=== PATIENT | female | born 1950 | race Caucasian/White ===

== ENCOUNTER 2023-10-12 16:42 | Inpatient (IN) | payer MEDICARE, SELFPAY ==
--- NOTE | ~2023-10-12 | CT_ITS ---
EXAMINATION: CT HEAD WITHOUT CONTRAST CLINICAL INFORMATION: Delirium. COMPARISON: None. TECHNIQUE: Contiguous axial imaging was performed from the skull base to vertex without intravenous administration of contrast. This CT examination was performed using dose optimization techniques as appropriate, variously including the following: *Automated exposure control *Adjustment of mA and/or kV according to patient size (this includes techniques or standardized protocols for targeted exams where dose is matched to indication/reason for exam; i.e. extremities or head) *Use of iterative reconstruction technique DLP: 657 mGy-cm. FINDINGS: There is no intracranial hemorrhage, large infarction, or mass lesion. There is no extra-axial collection. The lateral and third ventricles are mildly prominent, slightly out of disproportionate to the sulcal prominence. However, no findings additional suspicious for NPH are seen. There is a mild degree of diffuse brain parenchymal volume loss with mild prominence of ventricles and sulci. The visualized paranasal sinuses and mastoid air cells are clear. CT/CT head/brain wo IV con IMPRESSION: No acute intracranial abnormality.
[2023-10-12 17:14] VITALS: BP 169/84; PULSE 86; RESP 16; TEMP 36.8; O2SAT 100
[2023-10-12 17:26] VITALS: BMI 18.3
--- NOTE | 2023-10-12 18:21 | PC.ADMIT ---
Pt admitted on this unit on a CV at 1705 via stretcher, as a transfer from [facility]. She is a 73 year old female. Pt presented? to [facility] from private home with confusion, labile mood, and heightened anxiety. She was only partially oriented to person, time, place, and situation---she was unable to recall that she had called for help earlier today, and does not appear to recall that she had contacted other friends throughout the night to ask for help, prior to being transported to the ED by HCP, Lucy. When pt arrived on this unit she was anxious and upset about the admission process. They lied to me twice now, at the other hospital so I am worried that you will lie to me as well. Pt had a difficult time with answering the questions during admission process. She needed much redirection. Pt makes poor eye contact throughout, has slumped forward posture, appropriate volume and tone, and many scabs and small bruises on UE and LE. Pt states that she is unsure how her skin was broken. Pt had a two week stay at [facility] about two weeks ago, and has not been medication compliant since then. She was treated for a UTI during her medical stay. Overall, patient is pleasant, cooperative and gentle. She has concerns about being able to sleep well at night. She has moderately swollen tissue on her R elbow area. Pt reports potential constipation-states that she went either 2 or three days ago last, and feels as though she needs to move her bowels.
[2023-10-12 22:00] VITALS: BP 184/84; PULSE 89; RESP 18; TEMP 36.6; O2SAT 98
--- NOTE | 2023-10-13 09:10 | HO.PSYADMNOT ---
HPI Date of Service: 10/13/23 Chief Complaint: Panic disorder, anxiety Sources of Information: patient interviewed, chart reviewed and crisis/core team assessment reviewed HPI Subjective Notes: Conditional Voluntary Healthcare Proxy: Yes Narrative: The patient is a 73-year-old female, retired, living independently, referred from the emergency room of [facility]. According to the crisis assessment, the patient was brought to the emergency room by her friend any who is the healthcare proxy. Apparently the patient had been calling asking for help to several friends and family members. The patient was admitted into the hospital for medical reasons a few days ago with a diagnosis of UTI/pyelonephritis and apparently she stopped her medications while she was on the medical admission. She was assessed by the crisis team in the emergency room and she was grossly confused and disorganized, anxious unable to remember how come she in the up in the hospital. The patient carries a diagnosis of depression and anxiety and she has outpatient services. Since it was not her baseline she was transferring to this facility for psychiatric stabilization. On intake interview, the patient was very anxious, she looked confused, unable to provide details how come she in the in the hospital. I explained her that she had an infection a few weeks ago and she needed antibiotics and that is why she is confused at times. She was able to understand that but she was unable to provide further details. We will try to gather more collateral information. At this moment the patient adamantly denies suicidal or homicidal thoughts, psychotic symptoms or kristen. We will try to gather more collateral information. Disorder used that the patient has poor short-term memory, she looks disoriented and confused. Most likely she is on delirium still. Past Psychiatric History: According to the crisis team, the patient has outpatient services with a therapist and a medical provider. She carries a diagnosis of depression and anxiety Medical Evaluation Reviewed: Hospitalist Fior Pending COUNT INCLUDES THE [facility] Narrative: Osteoporosis High blood pressure Hypercholesteremia Recent UTI Family History: Unable to provide details Social History: Apparently the patient lives alone in the community, Substance History: Denies Trauma History: Denies Diagnostics Vital Signs (24Hr): Vital Signs - 24 hr 10/12/23 17:14 10/12/23 22:00 Temperature 98.2 F 98 F Pulse Rate 86 89 Respiratory Rate 16 18 Blood Pressure 169/84 H 184/84 H Pulse Oximetry 100 98 Oxygen Delivery Method Room Air Room Air BMI result Body Mass Index 18.3 Meds/Allergies Meds Home Medications Medication Instructions Recorded Confirmed Type acetaminophen-codeine 15 - 300 mg PO QID PRN Pain 10/12/23 10/12/23 History albuterol 2 puff PO QID PRN Wheezing 10/12/23 10/12/23 History amlodipine 5 mg PO DAILY 10/12/23 10/12/23 History atorvastatin 40 mg PO BEDTIME 10/12/23 10/12/23 History bupropion HCl 100 mg PO DAILY 10/12/23 10/12/23 History cefuroxime axetil 500 mg PO BID 10/12/23 10/12/23 History clonidine 0.1 mg PO TID PRN other 10/12/23 10/12/23 History cyclobenzaprine 5 mg PO TID PRN spasms 10/12/23 10/12/23 History duloxetine 20 mg PO DAILY 10/12/23 10/12/23 History ferrous sulfate 325 mg PO DAILY 10/12/23 10/12/23 History gabapentin 600 mg PO TID 10/12/23 10/12/23 History ibandronate 150 mg PO QMONTH 10/12/23 10/12/23 History lidocaine 1 patch topical NEEDED PRN pain 10/12/23 10/12/23 History lorazepam 1 mg PO TID PRN Anxiety 10/12/23 10/12/23 History metformin 750 mg PO DAILY@1700 10/12/23 10/12/23 History ondansetron HCl 4 mg PO BID PRN nausea/vomitting 10/12/23 10/12/23 History quetiapine 25 mg PO BEDTIME PRN Insomnia 10/12/23 10/12/23 History zolpidem 10 mg PO NEEDED PRN Insomnia 10/12/23 10/12/23 History Allergies Allergies Allergy/AdvReac Type Severity Reaction Status Date / Time alendronate sodium AdvReac Unknown Verified 10/12/23 18:37 [From Fosamax] Penicillins AdvReac Diarrhea Verified 10/12/23 18:37 sertraline [From Zoloft] AdvReac Diarrhea Verified 10/12/23 18:37 Mental Status Exam Mental Status Exam Patient Appearance: Appropriate Patient Orientation: Person Level of Consciousness: Disoriented and Restless Patient Behavior: Guarded, Passive and Restless Mood Description: Withdrawn Affect Description: Labile Patient Cognition Impaired: Yes Ability to Follow Directions: Good Speech Pattern: Clear Hallucinations: None Delusions: Ideas of Reference Thought Process: Distracted and Slowed Thinking Thought Content: positive for [place], positive for Poverty of Content, positive for Loose Associations and positive for Thought Blocking Judgement: Poor Assessment & Plan Assessment & Plan (1) Delirium: Status: Acute Code(s): R41.0 - Disorientation, unspecified (2) Major depressive disorder: Status: Acute Code(s): F32.9 - Major depressive disorder, single episode, unspecified Plan The patient is an elderly female with a past history of major depressive disorder and generalized anxiety disorder treated in the community and apparently at baseline she had been highly functional. Two weeks ago the patient had a UTI with pyelonephritis that needed inpatient level of care and apparently her psychiatric medications were discontinue. On admission the patient is still on delirium confused unable to remember how come she in the in the hospital unable to provide any details. Plan 1. Gather collateral information. We will do a medication reconciliation form and continue with his regular medications. 3. 15 minute checks. 4. Blood work. 5. Referral to medical team for medical clearance. Patient educated on: diagnosis and medical condition Reason for continued inpatient stay Substantial Risk for: inability to function, rapid decompensation and med/psych decompensation Statement Statement: I have reviewed the history and physical and performed a pertinent examination on my patient. No changes have occurred unless specified. If the History and Physical was not performed prior to admission, the Hospitalist's service will be consulted for completing the admission physical. Time Spent With Patient Time: Total time managing care of this patient today _45___ minutes.
[2023-10-13 09:58] VITALS: BP 141/68; PULSE 80; RESP 16; TEMP 37.1; O2SAT 97
[2023-10-13 13:00] VITALS: BMI 18.3
--- NOTE | 2023-10-13 16:55 | HO.PM.IMCN ---
History of Present Illness Data of Consult Service Date: 10/13/23 Primary Care Provider: JOSE ANGEL Hampton HPI Reason for consult: Admission H&P Pt is a 73-year-old female with a PMH significant for?HTN, HLD, peripheral neuropathy, [id number] diabetes type 2, depression and anxiety who is admitted to [facility] for disorganization. Medical consult for admission H&P. ?According to chart review, pt was recently discharged from [facility] on 10/10 after being admitted for possible UTI/pyelonephritis with pyuria, though urine cultures ultimately came back negative. Also had a recent fall a few weeks ago with right-sided rib fractures, as well as right-sided olecranon bursitis previous to that. Pt seen and evaluated at bedside. Pt complains of having an upset stomach, but is unable to further clarify if she is experiencing nausea, pain, or acid reflux. She just repeats she would like to go home and rest there. Pt otherwise has no acute medical complaints. Review of Systems Review of Systems: Pt complains of upset stomach Otherwise has no acute medical complaints PMFSH Social History Household Members: None Housing: House Do you presently have visiting nurse or other home services: No (PT WAS ABOUT TO HIRE HER FRIEND TO PROVIDE HOUSEKEEPING/MEAL PREP.) Patient Tobacco Use Status: Current everyday Tobacco user Tobacco use type: Cigarette Smoked in Last 30 Days: Yes e-Cigarette/Vaping Use: Currently Using Patient Interested in Nicotine Replacement: Yes Patient Given Instructions on How to Stop Smoking: Yes Date Education Initiated: 10/12/23 Second Hand Smoke Exposure: No Use of substances other than those prescribed or required for medical reasons: No Currently Displaying Signs/Symptoms of Drug Intoxication Withdrawal: No Any prior treatment program specific to substance use: No Have you been hit, kicked, punched, or otherwise hurt by someone within the past year? If so, by whom?: No Do you feel safe in your current relationship?: No Current Relationship Is there a partner from a previous relationship who is making you feel unsafe now?: No Are you made to feel afraid or neglected: No Advance Directives: No Advance Directives Information Provided: No Do you have thoughts of harming others: None Do you have a plan to hurt others: No Plan Recently lost weight without trying: No How much weight loss: Not applicable Eating poorly because of decreased appetite: No Nutrition screen score: 0 Nutrition Risks: No Nutritional Risk Patient : No : No Poor oral hygiene: No service: No Sexual orientation: Straight/Heterosexual Meds Allergies Allergy/AdvReac Type Severity Reaction Status Date / Time alendronate sodium AdvReac Unknown Verified 10/12/23 18:37 [From Fosamax] Penicillins AdvReac Diarrhea Verified 10/12/23 18:37 sertraline [From Zoloft] AdvReac Diarrhea Verified 10/12/23 18:37 Active Medications: Current Medications Acetaminophen (Acetaminophen 325 Mg Tablet) 650 mg PO Q6H PRN PRN Reason: Headache/Pain Mild Scale (1-3) Last Admin: 10/12/23 21:10 Dose: 650 mg Al Hydroxide/Mg Hydroxide (Magnesium Hydrox/Alum Hydrox 30 Ml Oral.Susp) 30 ml PO Q6H PRN PRN Reason: Heartburn/Nausea Amlodipine Besylate (Amlodipine Besylate 5 Mg Tablet) 5 mg PO DAILY [facility]; Protocol Last Admin: 10/13/23 10:37 Dose: 5 mg Cefuroxime Axetil (Cefuroxime Axetil 500 Mg Tablet) 500 mg PO BID GABRIEL Last Admin: 10/13/23 10:37 Dose: 500 mg Clonidine HCl (Clonidine Hcl 0.1 Mg Tablet) 0.1 mg PO TID PRN; Protocol PRN Reason: HTN Last Admin: 10/13/23 00:13 Dose: 0.1 mg Magnesium Hydroxide (Milk Of Magnesia 30 Ml Oral.Susp) 30 ml PO DAILY PRN PRN Reason: Constipation Last Admin: 10/13/23 14:09 Dose: 30 ml Nicotine (Nicotine 21 Mg Patch.Td24) 21 mg TRANSDERMA DAILY [facility] Olanzapine (Olanzapine 2.5 Mg Tablet) 2.5 mg PO DAILY PRN PRN Reason: agitation Last Admin: 10/12/23 20:57 Dose: 2.5 mg Trazodone HCl (Trazodone Hcl 25 Mg Halftab) 25 mg PO BEDTIME MRX1 PRN PRN Reason: Insomnia Last Admin: 10/12/23 22:26 Dose: 25 mg Home Medications Medication Instructions Recorded Confirmed Last Taken Type acetaminophen-codeine 15 - 300 mg PO QID PRN Pain 10/12/23 10/12/23 Unknown History albuterol 2 puff PO QID PRN Wheezing 10/12/23 10/12/23 Unknown History amlodipine 5 mg PO DAILY 10/12/23 10/12/23 Unknown History atorvastatin 40 mg PO BEDTIME 10/12/23 10/12/23 Unknown History bupropion HCl 100 mg PO DAILY 10/12/23 10/12/23 Unknown History cefuroxime axetil 500 mg PO BID 10/12/23 10/12/23 Unknown History clonidine 0.1 mg PO TID PRN other 10/12/23 10/12/23 Unknown History cyclobenzaprine 5 mg PO TID PRN spasms 10/12/23 10/12/23 Unknown History duloxetine 20 mg PO DAILY 10/12/23 10/12/23 Unknown History ferrous sulfate 325 mg PO DAILY 10/12/23 10/12/23 Unknown History gabapentin 600 mg PO TID 10/12/23 10/12/23 Unknown History ibandronate 150 mg PO QMONTH 10/12/23 10/12/23 Unknown History lidocaine 1 patch topical NEEDED PRN pain 10/12/23 10/12/23 Unknown History lorazepam 1 mg PO TID PRN Anxiety 10/12/23 10/12/23 Unknown History metformin 750 mg PO DAILY@1700 10/12/23 10/12/23 Unknown History ondansetron HCl 4 mg PO BID PRN nausea/vomitting 10/12/23 10/12/23 Unknown History quetiapine 25 mg PO BEDTIME PRN Insomnia 10/12/23 10/12/23 Unknown History zolpidem 10 mg PO NEEDED PRN Insomnia 10/12/23 10/12/23 Unknown History Physical Exam Vital Signs and Narrative: Vital Signs: Last Vital Signs Temp 98.8 F 10/13/23 09:58 Pulse 80 10/13/23 09:58 Resp 16 10/13/23 09:58 BP 141/68 H 10/13/23 09:58 Pulse Ox 97 10/13/23 09:58 O2 Del Method Room Air 10/13/23 09:58 BMI result Body Mass Index 18.3 General: AOx3, though not fully to situation. In no acute distress Resp: CTA bilaterally CVS: S1, S2, RRR GI: +BS, NT, no distention Skin: Warm, dry Neuro: Cranial nerves II-XII grossly intact bilaterally. Motor grossly intact bilaterally Extremities: No edema Assessment and Plan (1) Medical clearance for psychiatric admission: Status: Acute Plan Pt is a 73-year-old female with a PMH significant for?HTN, HLD, peripheral neuropathy, [id number] diabetes type 2, depression and anxiety who is admitted to [facility] for disorganization. Medical consult for admission H&P. Mood disorder Plan as per psychiatry Nausea/upset stomach Ondansetron and magnesium hydroxide/aluminum hydroxide p.r.n. Question of UTI Was admitted at [facility] for UTI/pyelo and discharged on 10/10; cultures came back negative Finish course of cefuroxime HTN Continue amlodipine, HLD Continue statin Peripheral neuropathy Continue gabapentin Non-insulin dependent type 2 diabetes mellitus Continue metformin Encourage diabetic diet Thank you for allowing us to participate in the care of this patient. Signing off at this time. Please re-consult if any acute complaints or issues arise.
[2023-10-13 20:16] VITALS: BP 181/85; PULSE 74; RESP 16; TEMP 36.4; O2SAT 96
[2023-10-14 06:00] VITALS: BP 157/69; PULSE 71; RESP 16; TEMP 36.6; O2SAT 98
--- NOTE | 2023-10-14 15:25 | HO.PSYCHPN ---
Subjective Subjective Date of Service: 10/14/23 Reason For Visit: Panic disorder, anxiety Interim History: Pt was seen and discussed in team rounds. Plans reviewed. Current UTI being treated. Reports nausea and anxiety. Zofran and Lorazapem ordered. R Elbow with edema, xray ordered. Medication Compliance: Yes Side effects from medications: No Attending Groups: Intermittent Review of Systems Medical Review of Systems: unchanged Review of Systems Musculoskeletal: Reports other (R Elbow edema) Mental Status Exam Mental Status Exam Patient Appearance: Appropriate Patient Orientation: Person Level of Consciousness: Disoriented and Restless Patient Behavior: Guarded, Passive and Restless Mood Description: Withdrawn Affect Description: Labile Patient Cognition Impaired: Yes Ability to Follow Directions: Good Speech Pattern: Clear Hallucinations: None Delusions: Ideas of Reference Thought Process: Distracted and Slowed Thinking Thought Content: positive for [place], positive for Poverty of Content, positive for Loose Associations and positive for Thought Blocking Judgement: Poor Diagnostics Vital Signs (24Hr): Vital Signs - 24 hr 10/13/23 20:16 10/14/23 06:00 Temperature 97.6 F 97.8 F Pulse Rate 74 71 Respiratory Rate 16 16 Blood Pressure 181/85 H 157/69 H Pulse Oximetry 96 98 Oxygen Delivery Method Room Air Room Air BMI result Body Mass Index 18.3 Medications Medications Current Medications Acetaminophen (Acetaminophen 325 Mg Tablet) 650 mg PO Q6H PRN PRN Reason: Headache/Pain Mild Scale (1-3) Last Admin: 10/12/23 21:10 Dose: 650 mg Al Hydroxide/Mg Hydroxide (Magnesium Hydrox/Alum Hydrox 30 Ml Oral.Susp) 30 ml PO Q6H PRN PRN Reason: Heartburn/Nausea Amlodipine Besylate (Amlodipine Besylate 5 Mg Tablet) 5 mg PO DAILY GABRIEL; Protocol Last Admin: 10/14/23 10:30 Dose: 5 mg Cefuroxime Axetil (Cefuroxime Axetil 500 Mg Tablet) 500 mg PO BID GABRIEL Last Admin: 10/14/23 10:30 Dose: 500 mg Clonidine HCl (Clonidine Hcl 0.1 Mg Tablet) 0.1 mg PO TID PRN; Protocol PRN Reason: HTN Last Admin: 10/13/23 20:32 Dose: 0.1 mg Magnesium Hydroxide (Milk Of Magnesia 30 Ml Oral.Susp) 30 ml PO DAILY PRN PRN Reason: Constipation Last Admin: 10/13/23 14:09 Dose: 30 ml Nicotine (Nicotine 21 Mg Patch.Td24) 21 mg TRANSDERMA DAILY GABRIEL Last Admin: 10/14/23 10:30 Dose: 21 mg Olanzapine (Olanzapine 2.5 Mg Tablet) 2.5 mg PO DAILY PRN PRN Reason: agitation Last Admin: 10/14/23 15:23 Dose: 2.5 mg Ondansetron HCl (Ondansetron Odt 4 Mg Tab.Rapdis) 8 mg TRANSLINGU Q6H PRN PRN Reason: Nausea Last Admin: 10/14/23 13:54 Dose: 8 mg Trazodone HCl (Trazodone Hcl 25 Mg Halftab) 25 mg PO BEDTIME MRX1 PRN PRN Reason: Insomnia Last Admin: 10/13/23 20:32 Dose: 25 mg Allergies Allergies Allergy/AdvReac Type Severity Reaction Status Date / Time alendronate sodium AdvReac Unknown Verified 10/12/23 18:37 [From Fosamax] Penicillins AdvReac Diarrhea Verified 10/12/23 18:37 sertraline [From Zoloft] AdvReac Diarrhea Verified 10/12/23 18:37 Assessment & Plan Assessment & Plan (1) Major depressive disorder: Status: Acute Code(s): F32.9 - Major depressive disorder, single episode, unspecified Assessment and Plan: 10/14/23 X Ray R Elbow-edematous Zofran prn nausea Lorazepam prn anxiety Plan Pt is a 73-year-old female with a PMH significant for?HTN, HLD, peripheral neuropathy, [id number] diabetes type 2, depression and anxiety who is admitted to [facility] for disorganization. Medical consult for admission H&P. Mood disorder Plan as per psychiatry Nausea/upset stomach Ondansetron and magnesium hydroxide/aluminum hydroxide p.r.n. Question of UTI Was admitted at [facility] for UTI/pyelo and discharged on 10/10; cultures came back negative Finish course of cefuroxime HTN Continue amlodipine, HLD Continue statin Peripheral neuropathy Continue gabapentin Non-insulin dependent type 2 diabetes mellitus Continue metformin Encourage diabetic diet Thank you for allowing us to participate in the care of this patient. Signing off at this time. Please re-consult if any acute complaints or issues arise. Patient educated on: medical condition Informed Consent: does not understand Reason for continued inpatient stay Substantial Risk for: med/psych decompensation Time Spent With Patient Time: Total time managing care of this patient today ____ minutes.
[2023-10-14] MEDS: LORazepam 0.5 MG TABLET PO (16:02)
[2023-10-14 20:20] VITALS: BP 185/76; PULSE 72; RESP 16; TEMP 36.7; O2SAT 96
[2023-10-15 10:37] VITALS: BP 170/92; PULSE 91; RESP 16; TEMP 36.7; O2SAT 95
[2023-10-15 12:55] VITALS: BP 128/58; PULSE 78
--- NOTE | 2023-10-15 17:03 | HO.PSYCHPN ---
Subjective Subjective Date of Service: 10/15/23 Reason For Visit: Panic disorder, anxiety Interim History: R elbow diagnostics shows bursitis. Pt visable in milieu and with peers. Team reports they are seeing an increase in anxious sx. Trial of lorazepam 0.5 mg tid prn requested Medication Compliance: Yes Side effects from medications: No Attending Groups: Yes Review of Systems Acute medical concerns: No Medical Review of Systems: unchanged Review of Systems Review of Systems bursitis Mental Status Exam Mental Status Exam Patient Appearance: Appropriate Patient Orientation: Person Level of Consciousness: Disoriented and Restless Patient Behavior: Guarded, Passive and Restless Mood Description: Withdrawn Affect Description: Labile Patient Cognition Impaired: Yes Ability to Follow Directions: Good Speech Pattern: Clear Hallucinations: None Delusions: Ideas of Reference Thought Process: Distracted and Slowed Thinking Thought Content: positive for [place], positive for Poverty of Content, positive for [place] and positive for Thought Blocking Judgement: Poor Diagnostics Vital Signs (24Hr): Vital Signs - 24 hr 10/14/23 20:20 10/15/23 10:37 10/15/23 12:55 Temperature 98.0 F 98.1 F Pulse Rate 72 91 78 Respiratory Rate 16 16 Blood Pressure 185/76 H 170/92 H 128/58 L Pulse Oximetry 96 95 Oxygen Delivery Method Room Air Room Air BMI result Body Mass Index 18.3 Imaging Radiology Impressions: ITS Impressions Elbow X-Ray 10/14/23 18:35 IMPRESSION: * No acute osseous injury at the right elbow. * Findings suggestive of olecranon bursitis. Medications Medications Current Medications Acetaminophen (Acetaminophen 325 Mg Tablet) 650 mg PO Q6H PRN PRN Reason: Headache/Pain Mild Scale (1-3) Last Admin: 10/15/23 02:08 Dose: 650 mg Al Hydroxide/Mg Hydroxide (Magnesium Hydrox/Alum Hydrox 30 Ml Oral.Susp) 30 ml PO Q6H PRN PRN Reason: Heartburn/Nausea Amlodipine Besylate (Amlodipine Besylate 5 Mg Tablet) 5 mg PO DAILY [facility]; Protocol Last Admin: 10/15/23 10:42 Dose: 5 mg Cefuroxime Axetil (Cefuroxime Axetil 500 Mg Tablet) 500 mg PO BID [facility] Last Admin: 10/15/23 10:42 Dose: 500 mg Clonidine HCl (Clonidine Hcl 0.1 Mg Tablet) 0.1 mg PO TID PRN; Protocol PRN Reason: HTN Last Admin: 10/15/23 10:42 Dose: 0.1 mg Lorazepam (Lorazepam 0.5 Mg Tablet) 0.5 mg PO Q8H PRN PRN Reason: anxiety,agitation Last Admin: 10/15/23 02:08 Dose: 0.5 mg Lorazepam (Lorazepam 0.5 Mg Tablet) 0.5 mg PO Q8H PRN PRN Reason: Anxiety Magnesium Hydroxide (Milk Of Magnesia 30 Ml Oral.Susp) 30 ml PO DAILY PRN PRN Reason: Constipation Last Admin: 10/13/23 14:09 Dose: 30 ml Nicotine (Nicotine 21 Mg Patch.Td24) 21 mg TRANSDERMA DAILY [facility] Last Admin: 10/15/23 10:42 Dose: 21 mg Olanzapine (Olanzapine 2.5 Mg Tablet) 2.5 mg PO DAILY PRN PRN Reason: agitation Last Admin: 10/14/23 15:23 Dose: 2.5 mg Ondansetron HCl (Ondansetron Odt 4 Mg Tab.Rapdis) 8 mg TRANSLINGU Q6H PRN PRN Reason: Nausea Last Admin: 10/14/23 13:54 Dose: 8 mg Trazodone HCl (Trazodone Hcl 25 Mg Halftab) 25 mg PO BEDTIME MRX1 PRN PRN Reason: Insomnia Last Admin: 10/15/23 01:25 Dose: 25 mg Allergies Allergies Allergy/AdvReac Type Severity Reaction Status Date / Time alendronate sodium AdvReac Unknown Verified 10/12/23 18:37 [From Fosamax] Penicillins AdvReac Diarrhea Verified 10/12/23 18:37 sertraline [From Zoloft] AdvReac Diarrhea Verified 10/12/23 18:37 Assessment & Plan Assessment & Plan (1) Major depressive disorder: Status: Acute Code(s): F32.9 - Major depressive disorder, single episode, unspecified Assessment and Plan: 10/14/23 X Ray R Elbow-edematous Zofran prn nausea Lorazepam prn anxiety 10/15/23 Lorazepam 0.5 mg tid prn anxious sx. Trial 10/15-10/18 Plan Pt is a 73-year-old female with a PMH significant for?HTN, HLD, peripheral neuropathy, [id number] diabetes type 2, depression and anxiety who is admitted to [facility] for disorganization. Medical consult for admission H&P. Mood disorder Plan as per psychiatry Nausea/upset stomach Ondansetron and magnesium hydroxide/aluminum hydroxide p.r.n. Question of UTI Was admitted at [facility] for UTI/pyelo and discharged on 10/10; cultures came back negative Finish course of cefuroxime HTN Continue amlodipine, HLD Continue statin Peripheral neuropathy Continue gabapentin Non-insulin dependent type 2 diabetes mellitus Continue metformin Encourage diabetic diet Thank you for allowing us to participate in the care of this patient. Signing off at this time. Please re-consult if any acute complaints or issues arise. Reason for continued inpatient stay Substantial Risk for: rapid decompensation Time Spent With Patient Time: Total time managing care of this patient today ____ minutes.
[2023-10-15 18:00] VITALS: BP 146/70; PULSE 77; RESP 16; TEMP 37.6; O2SAT 97
[2023-10-15 21:00] VITALS: TEMP 37.1
[2023-10-16 07:59] VITALS: BP 188/94; PULSE 93; RESP 18; TEMP 35.9; O2SAT 96
[2023-10-16 09:53] VITALS: BP 135/68
--- NOTE | 2023-10-16 09:59 | PC.NURSE ---
Morning BP at 0759 188/94 and she was asymptomatic. Gave morning BP med and PRN Clonidine and recheck of BP 135/[address] Tillman notified of initial BP and follow up BP.
--- NOTE | 2023-10-16 14:09 | HO.PSYCHPN ---
Subjective Subjective Date of Service: 10/16/23 Reason For Visit: Panic disorder, anxiety Subjective Notes: Conditional Voluntary Interim History: The nursing staff reported the patient had presented with flat affect, with good appetite perseverative over the week trying to call his family. On interview the patient had poor short-term memory and she agreed to do blood work and CT scan today. We will keep on the same treatment right now and reassess. Mental Status Exam Mental Status Exam Patient Appearance: Well Grooomed and Appropriate Patient Orientation: Person and Situation Level of Consciousness: Awake and Appropriate Patient Behavior: Guarded and Passive Mood Description: Calm Affect Description: Blunted Patient Cognition Impaired: Yes Ability to Follow Directions: Fair Speech Pattern: Clear Hallucinations: None Delusions: Ideas of Reference Thought Process: Distracted and Slowed Thinking Thought Content: positive for [place] and positive for Circumstantial Judgement: Poor Diagnostics Vital Signs (24Hr): Vital Signs - 24 hr 10/15/23 18:00 10/15/23 21:00 10/16/23 07:59 Temperature 99.7 F 98.7 F 96.6 F L Pulse Rate 77 93 Respiratory Rate 16 18 Blood Pressure 146/70 H 188/94 H Pulse Oximetry 97 96 Oxygen Delivery Method Room Air Room Air 10/16/23 09:53 Temperature Pulse Rate Respiratory Rate Blood Pressure 135/68 Pulse Oximetry Oxygen Delivery Method BMI result Body Mass Index 18.3 Imaging Radiology Impressions: ITS Impressions Elbow X-Ray 10/14/23 18:35 IMPRESSION: * No acute osseous injury at the right elbow. * Findings suggestive of olecranon bursitis. Medications Medications Current Medications Acetaminophen (Acetaminophen 325 Mg Tablet) 650 mg PO Q6H PRN PRN Reason: Headache/Pain Mild Scale (1-3) Last Admin: 10/16/23 08:23 Dose: 650 mg Al Hydroxide/Mg Hydroxide (Magnesium Hydrox/Alum Hydrox 30 Ml Oral.Susp) 30 ml PO Q6H PRN PRN Reason: Heartburn/Nausea Amlodipine Besylate (Amlodipine Besylate 5 Mg Tablet) 5 mg PO DAILY [facility]; Protocol Last Admin: 10/16/23 08:23 Dose: 5 mg Cefuroxime Axetil (Cefuroxime Axetil 500 Mg Tablet) 500 mg PO BID [facility] Last Admin: 10/16/23 08:23 Dose: 500 mg Clonidine HCl (Clonidine Hcl 0.1 Mg Tablet) 0.1 mg PO TID PRN; Protocol PRN Reason: HTN Last Admin: 10/16/23 08:23 Dose: 0.1 mg Lorazepam (Lorazepam 0.5 Mg Tablet) 0.5 mg PO Q8H PRN PRN Reason: anxiety,agitation Last Admin: 10/16/23 08:23 Dose: 0.5 mg Magnesium Hydroxide (Milk Of Magnesia 30 Ml Oral.Susp) 30 ml PO DAILY PRN PRN Reason: Constipation Last Admin: 10/13/23 14:09 Dose: 30 ml Nicotine (Nicotine 21 Mg Patch.Td24) 21 mg TRANSDERMA DAILY [facility] Last Admin: 10/16/23 08:24 Dose: 21 mg Olanzapine (Olanzapine 2.5 Mg Tablet) 2.5 mg PO DAILY PRN PRN Reason: agitation Last Admin: 10/16/23 00:48 Dose: 2.5 mg Ondansetron HCl (Ondansetron Odt 4 Mg Tab.Rapdis) 8 mg TRANSLINGU Q6H PRN PRN Reason: Nausea Last Admin: 10/16/23 08:28 Dose: 8 mg Trazodone HCl (Trazodone Hcl 25 Mg Halftab) 25 mg PO BEDTIME MRX1 PRN PRN Reason: Insomnia Last Admin: 10/16/23 00:48 Dose: 25 mg Allergies Allergies Allergy/AdvReac Type Severity Reaction Status Date / Time alendronate sodium AdvReac Unknown Verified 10/12/23 18:37 [From Fosamax] Penicillins AdvReac Diarrhea Verified 10/12/23 18:37 sertraline [From Zoloft] AdvReac Diarrhea Verified 10/12/23 18:37 Assessment & Plan Assessment & Plan (1) Major depressive disorder: Status: Acute Code(s): F32.9 - Major depressive disorder, single episode, unspecified Assessment and Plan: 10/14/23 X Ray R Elbow-edematous Zofran prn nausea Lorazepam prn anxiety 10/15/23 Lorazepam 0.5 mg tid prn anxious sx. Trial 10/15-10/18 Plan Pt is a 73-year-old female with a PMH significant for?HTN, HLD, peripheral neuropathy, hsy-icbkauu-amtoknoca diabetes type 2, depression and anxiety who is admitted to [facility] for disorganization. Medical consult for admission H&P. Mood disorder Plan as per psychiatry Nausea/upset stomach Ondansetron and magnesium hydroxide/aluminum hydroxide p.r.n. Question of UTI Was admitted at [facility] for UTI/pyelo and discharged on 10/10; cultures came back negative Finish course of cefuroxime HTN Continue amlodipine, HLD Continue statin Peripheral neuropathy Continue gabapentin Non-insulin dependent type 2 diabetes mellitus Continue metformin Encourage diabetic diet Thank you for allowing us to participate in the care of this patient. Signing off at this time. Please re-consult if any acute complaints or issues arise. Reason for continued inpatient stay Substantial Risk for: inability to function, rapid decompensation and med/psych decompensation Time Spent With Patient Time: Total time managing care of this patient today __20__ minutes.
--- NOTE | 2023-10-16 15:26 | MHC.CLN ---
NUTRITION DIET=REGULAR. ADEQUATE INTAKE NOTED. HAS PRN ZOFRAN FOR REPORTED NAUSEA. BMI=18.3. PATIENT IS UNDERWEIGHT. RD TO FOLLOW WEEKLY FOR INTAKE AND WEIGHT.
[2023-10-16 18:00] VITALS: BP 136/80; PULSE 84; RESP 18; TEMP 36.1; O2SAT 100
[2023-10-16] MEDS: traZODone HCL 25 MG HALFTAB PO ×2 (20:19→21:35)
[2023-10-16] MEDS: cefuroxime axetiL 500 MG TABLET PO (20:19)
[2023-10-16] MEDS: LORazepam 0.5 MG TABLET PO (21:11)
[2023-10-16] MEDS: Acetaminophen 325 MG TABLET 650 MG PO (21:35)
[2023-10-17] MEDS: Acetaminophen 325 MG TABLET 650 MG PO ×2 (06:06→21:23)
[2023-10-17 07:56] VITALS: BP 174/81; PULSE 83; RESP 18; TEMP 36.9; O2SAT 100
[2023-10-17 08:43] LABS: Ammonia 32 umol/L (13-55)
[2023-10-17] MEDS: LORazepam 0.5 MG TABLET PO ×2 (08:48→21:23)
[2023-10-17] MEDS: cloNIDine HCL 0.1 MG TABLET PO (08:48)
[2023-10-17] MEDS: amLODIPine Besylate 5 MG TABLET PO (08:48)
[2023-10-17] MEDS: cefuroxime axetiL 500 MG TABLET PO ×2 (08:49→21:22)
[2023-10-17] MEDS: Nicotine 21 MG PATCH.TD24 TRANSDERMA (08:49)
[2023-10-17] MEDS: Ondansetron ODT 4 MG TAB.RAPDIS 8 MG TRANSLINGU (08:49)
[2023-10-17] MEDS: OLANZapine 2.5 MG TABLET PO (08:49)
[2023-10-17 08:53] LABS: Alanine Aminotransferase 11 U/L (0-31); Albumin Level 3.9 g/dL (3.5-5.0); Alkaline Phosphatase 127 U/L (39-117); Anion Gap 13 (12-20); Aspartate Amino Transferase 11 U/L (5-31); Bilirubin Direct < 0.2 mg/dL (0.0-0.5); Bilirubin Total 0.2 mg/dL (0.0-1.0); Blood Urea Nitrogen 27 mg/dL (9-16); Calcium 9.5 mg/dL (8.4-10.2); Carbon Dioxide 24 mmol/L (22-29); Chloride 106 mmol/L (96-108); Creatinine Clr Calc Pharmacy 55.4; Estimated Glomerular Filt Rate > 60; Glucose Random 165 mg/dL (60-115); Potassium 4.2 mmol/L (3.3-5.1); Sodium 139 mmol/L (135-145); Total Protein 6.7 g/dL (6.5-8.0)
[2023-10-17 10:13] VITALS: BP 145/77
--- NOTE | 2023-10-17 10:19 | PC.NURSE ---
Morning bp 174/81 and Mariam asymptomatic. Morning meds and PRN Clonidine given and Dr. Tillman notified of BP. Recheck of BP at 1013 and 145/77; Dr. Tillman notified.
--- NOTE | 2023-10-17 12:07 | HO.PSYCHPN ---
Subjective Subjective Date of Service: 10/17/23 Reason For Visit: Panic disorder, anxiety Subjective Notes: Conditional Voluntary and 3 Day Interim History: The nursing staff reported the patient has verbalized he is willing to go back home. Yesterday we did a CT scan came back without no acute symptoms but there is chronic changes vascular. The occupational therapist did cognitive testing and she scored 10/30 on the Turner test and 4.2 on the Kwesi test. The aids social worker contact her therapist friends and adult protective Services and seems the patient had been deconditioned slowly. Today the patient signed a 3 day notice and she wants to be discharged as soon as possible. Mental Status Exam Mental Status Exam Patient Appearance: Well Grooomed Patient Orientation: Person and Situation Level of Consciousness: Awake Patient Behavior: Guarded and Passive Mood Description: Withdrawn Affect Description: Constricted Patient Cognition Impaired: Yes Ability to Follow Directions: Good Speech Pattern: Clear Hallucinations: None Delusions: Ideas of Reference Thought Process: Distracted and Slowed Thinking Thought Content: positive for [place] and positive for Poverty of Content Judgement: Fair Diagnostics Vital Signs (24Hr): Vital Signs - 24 hr 10/16/23 18:00 10/17/23 07:56 10/17/23 10:13 Temperature 96.9 F 98.4 F Pulse Rate 84 83 Respiratory Rate 18 18 Blood Pressure 136/80 174/81 H 145/77 H Pulse Oximetry 100 100 Oxygen Delivery Method Room Air Room Air BMI result Body Mass Index 18.3 Labs 10/17/23 08:04 Labs: Laboratory Results - last 48 hr 10/17/23 10/17/23 07:56 08:04 Sodium 139 Potassium 4.2 Chloride 106 Carbon Dioxide 24 Anion Gap 13 BUN 27 H Creatinine 0.80 Estim Creat Clear Calc 55.4 Estimated GFR > 60 Random Glucose 165 H Calcium 9.5 Total Bilirubin 0.2 Direct Bilirubin < 0.2 AST 11 ALT 11 Alkaline Phosphatase 127 H Ammonia 32 Total Protein 6.7 Albumin 3.9 Imaging Radiology Impressions: ITS Impressions Elbow X-Ray 10/14/23 18:35 IMPRESSION: * No acute osseous injury at the right elbow. * Findings suggestive of olecranon bursitis. Head CT 10/16/23 13:40 IMPRESSION: No acute intracranial abnormality. Medications Medications Current Medications Acetaminophen (Acetaminophen 325 Mg Tablet) 650 mg PO Q6H PRN PRN Reason: Headache/Pain Mild Scale (1-3) Last Admin: 10/17/23 06:06 Dose: 650 mg Al Hydroxide/Mg Hydroxide (Magnesium Hydrox/Alum Hydrox 30 Ml Oral.Susp) 30 ml PO Q6H PRN PRN Reason: Heartburn/Nausea Amlodipine Besylate (Amlodipine Besylate 5 Mg Tablet) 5 mg PO DAILY [facility]; Protocol Last Admin: 10/17/23 08:48 Dose: 5 mg Cefuroxime Axetil (Cefuroxime Axetil 500 Mg Tablet) 500 mg PO BID [facility] Last Admin: 10/17/23 08:49 Dose: 500 mg Clonidine HCl (Clonidine Hcl 0.1 Mg Tablet) 0.1 mg PO TID PRN; Protocol PRN Reason: HTN Last Admin: 10/17/23 08:48 Dose: 0.1 mg Lorazepam (Lorazepam 0.5 Mg Tablet) 0.5 mg PO Q8H PRN PRN Reason: anxiety,agitation Last Admin: 10/17/23 08:48 Dose: 0.5 mg Magnesium Hydroxide (Milk Of Magnesia 30 Ml Oral.Susp) 30 ml PO DAILY PRN PRN Reason: Constipation Last Admin: 10/13/23 14:09 Dose: 30 ml Nicotine (Nicotine 21 Mg Patch.Td24) 21 mg TRANSDERMA DAILY [facility] Last Admin: 10/17/23 08:49 Dose: 21 mg Olanzapine (Olanzapine 2.5 Mg Tablet) 2.5 mg PO DAILY PRN PRN Reason: agitation Last Admin: 10/17/23 08:49 Dose: 2.5 mg Ondansetron HCl (Ondansetron Odt 4 Mg Tab.Rapdis) 8 mg TRANSLINGU Q6H PRN PRN Reason: Nausea Last Admin: 10/17/23 08:49 Dose: 8 mg Trazodone HCl (Trazodone Hcl 25 Mg Halftab) 25 mg PO BEDTIME MRX1 PRN PRN Reason: Insomnia Last Admin: 10/16/23 21:35 Dose: 25 mg Allergies Allergies Allergy/AdvReac Type Severity Reaction Status Date / Time alendronate sodium AdvReac Unknown Verified 10/12/23 18:37 [From Fosamax] Penicillins AdvReac Diarrhea Verified 10/12/23 18:37 sertraline [From Zoloft] AdvReac Diarrhea Verified 10/12/23 18:37 Assessment & Plan Assessment & Plan (1) Major depressive disorder: Status: Acute Code(s): F32.9 - Major depressive disorder, single episode, unspecified Assessment and Plan: 10/14/23 X Ray R Elbow-edematous Zofran prn nausea Lorazepam prn anxiety 10/15/23 Lorazepam 0.5 mg tid prn anxious sx. Trial 10/15-10/18 Plan Pt is a 73-year-old female with a PMH significant for?HTN, HLD, peripheral neuropathy, zzb-[id number]-[id number] diabetes type 2, depression and anxiety who is admitted to [facility] for disorganization. Medical consult for admission H&P. Mood disorder Plan as per psychiatry Nausea/upset stomach Ondansetron and magnesium hydroxide/aluminum hydroxide p.r.n. Question of UTI Was admitted at [facility] for UTI/pyelo and discharged on 10/10; cultures came back negative Finish course of cefuroxime HTN Continue amlodipine, HLD Continue statin Peripheral neuropathy Continue gabapentin Non-insulin dependent type 2 diabetes mellitus Continue metformin Encourage diabetic diet Plan 1. Continue with same treatment. 2. The patient signed a 3 day notice will assess the possibility of Section 7 and 8. 3. The occupational therapist reported the patient scored very low on the Turner test 08/07 and 4.2 on the Kwesi test states seems that she is demented. Reason for continued inpatient stay Substantial Risk for: inability to function, rapid decompensation and med/psych decompensation Time Spent With Patient Time: Total time managing care of this patient today __20__ minutes.
[2023-10-17 18:53] VITALS: BP 149/67; PULSE 89; RESP 18; TEMP 36.5; O2SAT 96
[2023-10-17] MEDS: traZODone HCL 25 MG HALFTAB PO ×2 (21:23→22:34)
[2023-10-18 06:00] VITALS: BP 164/76; PULSE 85; RESP 16; TEMP 36.9; O2SAT 98
--- NOTE | 2023-10-18 09:07 | PM.PSYDC ---
DS: Providers Provider Date of Service: 10/18/23 Date of admission: 10/12/23 16:42 Date of discharge: 10/18/23 Primary care physician: JOSE ANGEL Hampton Consults: 10/12/23 19:14 Consult to Hospitalist Routine Comment: Consulting Provider: Hospitalist Reason For Exam: admission physical DS: Diagnosis Discharge Diagnosis (1) Major depressive disorder: Status: Acute DS: Medications Discharge Medications Home Medications: Home Medications Medication Instructions Recorded Confirmed acetaminophen-codeine 15 - 300 mg PO QID PRN Pain 10/12/23 10/12/23 albuterol 2 puff PO QID PRN Wheezing 10/12/23 10/12/23 amlodipine 5 mg PO DAILY 10/12/23 10/12/23 atorvastatin 40 mg PO BEDTIME 10/12/23 10/12/23 bupropion HCl 100 mg PO DAILY 10/12/23 10/12/23 cefuroxime axetil 500 mg PO BID 10/12/23 10/12/23 clonidine 0.1 mg PO TID PRN other 10/12/23 10/12/23 cyclobenzaprine 5 mg PO TID PRN spasms 10/12/23 10/12/23 duloxetine 20 mg PO DAILY 10/12/23 10/12/23 ferrous sulfate 325 mg PO DAILY 10/12/23 10/12/23 gabapentin 600 mg PO TID 10/12/23 10/12/23 ibandronate 150 mg PO QMONTH 10/12/23 10/12/23 lidocaine 1 patch topical NEEDED PRN pain 10/12/23 10/12/23 lorazepam 1 mg PO TID PRN Anxiety 10/12/23 10/12/23 metformin 750 mg PO DAILY@1700 10/12/23 10/12/23 ondansetron HCl 4 mg PO BID PRN nausea/vomitting 10/12/23 10/12/23 quetiapine 25 mg PO BEDTIME PRN Insomnia 10/12/23 10/12/23 zolpidem 10 mg PO NEEDED PRN Insomnia 10/12/23 10/12/23 Mental Status Exam Mental Status Exam Patient Appearance: Appropriate Patient Orientation: Person and Situation Level of Consciousness: Awake and Appropriate Patient Behavior: Guarded and Passive Mood Description: Withdrawn Affect Description: Constricted Patient Cognition Impaired: Yes Ability to Follow Directions: Good Speech Pattern: Clear Hallucinations: None Delusions: Not Present Thought Process: Distracted and Slowed Thinking Thought Content: positive for [place] and positive for Poverty of Content Judgement: Fair Data Data Completed and Pending Completed studies during hospitalization [Text1]: 10/17/23 10/17/23 07:56 08:04 Sodium 139 Potassium 4.2 Chloride 106 Carbon Dioxide 24 Anion Gap 13 BUN 27 H Creatinine 0.80 Estim Creat Clear Calc 55.4 Estimated GFR > 60 Random Glucose 165 H Calcium 9.5 Total Bilirubin 0.2 Direct Bilirubin < 0.2 AST 11 ALT 11 Alkaline Phosphatase 127 H Ammonia 32 Total Protein 6.7 Albumin 3.9 Imaging Diagnostic Imaging Impressions Elbow X-Ray 10/14/23 18:35 IMPRESSION: * No acute osseous injury at the right elbow. * Findings suggestive of olecranon bursitis. Head CT 10/16/23 13:40 IMPRESSION: No acute intracranial abnormality. DS: Summary Hospital Course Hospital Course: The patient is a 73-year-old female with a past history of major depressive disorder with outpatient providers referred to the emergency room for altered mental status in the context of UTI. The patient had a pyelonephritis episode a few weeks before and her antidepressants were stopped in the hospital. Later on, her relatives found her that she was extremely confused and she was brought to the emergency room. She was assessed by crisis and transferring to the facility for psychiatric stabilization. On intake, the patient was severely confused she did not remember how come she in the in the hospital, she stated that she wanted to go back home. I explained her that it was expected that she could be delirious after a UTI. She was started on antibiotics with no side effects. She eventually cleared up she was awake and alert but it was evident that the patient have a cognitive impairment. The patient was not aware of the diagnosis of dementia but apparently she carried that diagnosis before since we saw that she was already started on Namenda. The patient signed a 3 day notice and wanted to be discharged. At this moment, we could not find imminent danger so we can not filed for Section 7 and 8 and discharge planning was discussed. The pediatric social worker made all the arrangements and safe discharge planning. Her caregivers and family were aware of the discharge planning. Time spent discussing smoking cessation with patient: 3 to 10 minutes Status at Discharge Cognitive/behavioral status at discharge: Impaired at baseline Functional status at discharge: independent ambulation Overall status at discharge: patient is back to baseline Time Spent with Patient Time attestation: Total time managing care of this patient today __30__ minutes. Time spent: Less than 30 minutes Discharge Plan Discharge Anticipated Discharge Date/Time: 10/18/23 12:18 Patient Disposition: Home, Self-Care Discharge Diagnosis: Major depressive disorder. Dementia Delirium resolved. UTI resolved Referrals: Dr Genesis Eric [facility] [Other] - 11/01/23 9:00 am (Your next appointment with your psychiatrist Dr Eric is for 11/01/23 at 9am in office. ) Fam June [facility] [Other] - 10/20/23 3:00 pm (Your next appointment with your therapist is for Monday10/20/23 at 3pm. ) [facility] [Other] - 3-5 Days (Your telephonic nurse case manager Sushila will follow up and you are approved for the enhanced care package at [facility].) Jo Ann Cheng NP [facility] [Other] - 11/13/23 9:00 am (Your next appointment with Jo Ann is scheduled for 11/13/23 at 0900. ) Discharge Medications: New clonidine HCl 0.1 mg Tablet 0.1 mg PO TID PRN (Reason: HTN) 30 Days Qty: 60 0RF Protocol: Hold for SBP< HOLD for SBP < : 90 amlodipine 5 mg Tablet 5 mg PO DAILY 30 Days Qty: 30 0RF Protocol: Hold for SBP< HOLD for SBP < : 90 olanzapine 2.5 mg Tablet 2.5 mg PO DAILY PRN (Reason: agitation) 30 Days Qty: 30 0RF cefuroxime axetil 500 mg Tablet 500 mg PO BID 4 Days Qty: 8 0RF memantine 5 mg Tablet 5 mg PO DAILY 30 Days Qty: 30 0RF Continued albuterol inhaler 2 puff PO QID PRN (Reason: Wheezing) 30 Days Qty: 1 0RF Rx Instructions: Albuterol sulphate HFA 108 AERS ibandronate 150 mg PO QMONTH 30 Days Qty: 1 0RF Discontinued amlodipine 5 mg PO DAILY atorvastatin 40 mg PO BEDTIME bupropion HCl 100 mg PO DAILY Rx Instructions: bupropion 100mg/12hrs (SR) tablet, ER cefuroxime axetil 500 mg PO BID Rx Instructions: for 5 days clonidine 0.1 mg PO TID PRN (Reason: other) cyclobenzaprine 5 mg PO TID PRN (Reason: spasms) duloxetine 20 mg PO DAILY ferrous sulfate 325 mg PO DAILY gabapentin 600 mg PO TID lidocaine 1 patch topical NEEDED PRN (Reason: pain) lorazepam 1 mg PO TID PRN (Reason: Anxiety) metformin 750 mg PO DAILY@1700 ondansetron HCl 4 mg PO BID PRN (Reason: nausea/vomitting) quetiapine 25 mg PO BEDTIME PRN (Reason: Insomnia) Rx Instructions: per pt, she takes seroquel 5mg (1.3 tabs) po prn zolpidem 10 mg PO NEEDED PRN (Reason: Insomnia) acetaminophen-codeine 15 - 300 mg PO QID PRN (Reason: Pain) Discharge Orders: Discharge Order (Routine); Ordered 10/18/23 Ordered By: Orlin Tillman Diet: Advance to usual diet Activity on Discharge: As tolerated Stand Alone Forms: Patient Portal Discharge page Care Plan Goals: Care plan goals achieved in this admission Health Concerns: Continue with treatment with primary care physician Plan of Treatment: Continue with regular prescriber hers and other caregivers. Assessment: The patient is an elderly female with a past history of major depressive disorder who was brought into the facility for delirium that resolved after continue treatment with antibiotics. We did not started antidepressants since the patient was still cognitively impaired. Later on we found out that she carries a diagnosis of dementia and restarted on Namenda. At this moment safe to be discharged to the community
[2023-10-18] MEDS: Nicotine 21 MG PATCH.TD24 TRANSDERMA (09:11)
[2023-10-18] MEDS: amLODIPine Besylate 5 MG TABLET PO (09:12)
[2023-10-18] MEDS: cefuroxime axetiL 500 MG TABLET PO (09:12)
== END 2023-10-18 14:30 | disposition home or self-care (01) | DRG 881 ==
PROVIDERS: Admitting Provider Psychiatry & Neurology Psychiatry; PCP Nurse Practitioner Family; Visit Provider Psychiatry & Neurology Psychiatry
DX: F32.9 Major depressive disorder, single episode, unspecified (principal); N39.0 Urinary tract infection, site not specified; F17.210 Nicotine dependence, cigarettes, uncomplicated; F03.90 Unspecified dementia, unspecified severity, without behavioral disturbance, psychotic disturbance, mood disturbance, and anxiety; E11.42 Type 2 diabetes mellitus with diabetic polyneuropathy; R41.0 Disorientation, unspecified; E78.5 Hyperlipidemia, unspecified; I10 Essential (primary) hypertension; R11.0 Nausea; Z71.6 Tobacco abuse counseling; Z79.899 Other long term (current) drug therapy
CPT/HCPCS: 36415; 70450; 73070; 80048; 80076; 82140

== ENCOUNTER → 2023-10-12 16:42 | Outpatient (BNV) | payer MEDICARE, SELFPAY | PROVIDERS: Admitting Provider Psychiatry & Neurology Psychiatry; PCP Nurse Practitioner Family; Visit Provider Psychiatry & Neurology Psychiatry | DX: F33.2 Major depressive disorder, recurrent severe without psychotic features (principal) | CPT/HCPCS: 90792; 99231; 99232; 99238 ==

== ENCOUNTER → 2023-10-12 16:42 | Outpatient (BNV) | payer MEDICARE, SELFPAY | PROVIDERS: Admitting Provider Psychiatry & Neurology Psychiatry; PCP Nurse Practitioner Family; Visit Provider Student in an Organized Health Care Education/Training Program | DX: Z02.2 Encounter for examination for admission to residential institution (principal) | CPT/HCPCS: 99429 ==

== ENCOUNTER 2024-11-23 14:31 | Emergency (ER) | payer MEDICARE, SELFPAY ==
--- NOTE | ~2024-11-23 | CT_ITS ---
CLINICAL HISTORY: unwitnessed fall CT Brain without contrast Comparison: CT/SR - CT HEAD/BRAIN WO IV CON - 10/16/23 13:27 EST FINDINGS: Cortical sulci: There is diffuse prominence of the cortical sulci compatible with age-related atrophy. Ventricles: Normal for age Brain parenchyma: There is patchy lucency throughout the deep white matter indicating chronic microvascular leukomalacia. Extra axial spaces: Normal Posterior Fossa: Normal Extracranial soft tissues: Normal Additional abnormality: None IMPRESSION: Age-related atrophy with chronic microvascular leukomalacia. No hemorrhage, mass effect, or acute findings identified. This document has been electronically signed by: Greta Rodriguez MD on 11/23/2024 16:22:40
--- NOTE | ~2024-11-23 | XR_ITS ---
CLINICAL HISTORY: pain 3 view left shoulder Comparison: None Findings: No dislocation. Acute fracture of the humeral neck with angulation. No significant loss of joint space or osteophytes. No erosions. No radiopaque foreign body. IMPRESSION: Acute fracture of the humeral neck. This document has been electronically signed by: Greta Rodriguez MD on 11/23/2024 18:56:21
--- NOTE | ~2024-11-23 | CT_ITS ---
CLINICAL HISTORY: unwitnessed fall CT cervical spine without contrast Comparison: None Findings: Vertebral alignment is within normal limits. Degenerative changes of the cervical spine with osteophyte formation and narrowing of the C5-C6 intervertebral disc space. There is a fracture fragment of the anterior inferior portion of the C6 vertebral body. Visualized intracranial contents are unremarkable. Soft tissues of the neck are normal. No consolidation or effusion at the lung apices. IMPRESSION: Displaced fracture of the anterior inferior portion of the C6 vertebral body, likely to be acute. This document has been electronically signed by: Greta Rodriguez MD on 11/23/2024 16:19:31
--- NOTE | ~2024-11-23 | XR_ITS ---
CLINICAL HISTORY: pain 2 view left elbow Comparison: None Findings: Bones intact. No dislocations. No significant arthritic change or erosions. No joint effusion. No radiopaque foreign body. IMPRESSION: 1. No acute findings This document has been electronically signed by: Greta Rodriguez MD on 11/23/2024 18:53:50
--- NOTE | 2024-11-23 14:42 | ED_ITS ---
HPI - Extremity Problem General Chief complaint: Extremity Injury, Upper Stated complaint: L ELBOW PAIN Time Seen by Provider: 11/23/24 14:35 Source: patient, EMS and old records reviewed Mode of arrival: EMS Limitations: no limitations (poor historian) History of Present Illness ED Provider: Candi Herrera PA-C HPI Narrative: 74 yo female with history of dementia with behavioral disturbances, depression, asthma, GERD, anxiety, HLD, OA who presents to the ER from [facility] (locked dementia unit) where she c/o acute onset of left elbow pain. She was reportedly calling out in pain and when staff went into her room she was holding her left elbow. She had a skin tear on the elbow. There was no witnessed fall. She was c/o severe pain and would not range the joint. EMS was called. Patient placed in a sling and brought to the ER for further evaluation. MD Complaint: extremity pain and joint pain Onset (ago): hour(s) Pain Consistency: constant Location: left and upper extremity Severity scale (1-10): 10 Radiation: proximal Relieving factors: nothing Exacerbating factors: range of motion and palpation Associated symptoms: denies other symptoms Related Data Previous Rx's ?Medication ?Instructions ?Recorded albuterol 2 puff PO QID PRN Wheezing 30 days 10/18/23 #1 inhaler amlodipine 5 mg tablet 5 mg PO DAILY 30 days #30 tabs 10/18/23 cefuroxime axetil 500 mg tablet 500 mg PO BID 4 days #8 tabs 10/18/23 clonidine HCl 0.1 mg tablet 0.1 mg PO TID PRN HTN 30 days #60 10/18/23 tabs ibandronate 150 mg PO QMONTH 30 days #1 cap 10/18/23 memantine 5 mg tablet 5 mg PO DAILY 30 days #30 tabs 10/18/23 olanzapine 2.5 mg tablet 2.5 mg PO DAILY PRN agitation 30 10/18/23 days #30 tabs Allergies Allergy/AdvReac Type Severity Reaction Status Date / Time alendronate sodium AdvReac Unknown Verified 11/23/24 15:33 [From Fosamax] Penicillins AdvReac Diarrhea Verified 11/23/24 15:33 sertraline [From Zoloft] AdvReac Diarrhea Verified 11/23/24 15:33 Review of Systems Review of Systems: Yes all other systems are reviewed and are negative [facility] Social History Social History Household Members: None Housing: House Do you presently have visiting nurse or other home services: No (PT WAS ABOUT TO HIRE HER FRIEND TO PROVIDE HOUSEKEEPING/MEAL PREP.) Patient Tobacco Use Status: Current everyday Tobacco user Tobacco use type: Cigarette e-Cigarette/Vaping Use: Currently Using Second Hand Smoke Exposure: No Advance Directives: No Advance Directives Information Provided: No Do you have a plan to hurt others: No Plan service: No Sexual orientation: Straight/Heterosexual Physical Exam Vital Signs: Vital Signs: Last Vital Signs Temp 98.5 F 11/23/24 15:52 Pulse 75 11/23/24 15:52 Resp 20 11/23/24 15:52 BP 113/69 11/23/24 15:52 Pulse Ox 95 11/23/24 15:52 O2 Del Method Room Air 11/23/24 15:52 BMI result Body Mass Index 22.3 Appearance: Alert. Oriented X2. appears uncomfortable and in pain Head: normocephalic, atraumatic. Eyes: Pupils equal, round and reactive to light. ENT: Pharynx normal. No tonsillar swelling or exudate. Neck: Normal inspection. Neck supple. CVS: Normal heart rate and rhythm. Pulses normal. Respiratory: No respiratory distress. Breath sounds normal. Abdomen: Soft and nontender. +BS x4 Skin: Skin warm and dry. Normal skin color. Normal skin turgor. No rashes. Extremities: LUE held in flexion and adduction with tenderness of the proximal humerus. elbow is nontender with limited ROM of the elbow and shoulder. 1+ radial pulse and normal sensation in the forearm and hand. Neuro/psych: Oriented X 2. No motor deficit. No sensory deficit. CN II-XII intact. Normal speech and cognition. Course Reevaluation(s) Reevaluation #1: spoke with Dr. Pham who accepts patient as trauma consult. will have neurosurgery weigh in as well. placed in cervical collar transport being arranged now Time: 16:41 Medications Administered Discontinued Medications Generic Name Dose Route Start Last Admin Trade Name Freq PRN Reason Stop Dose Admin Acetaminophen 975 mg 11/23/24 14:44 11/23/24 15:24 Acetaminophen 325 Mg Tablet PO 11/23/24 14:45 975 mg ONCE ONE Administration Oxycodone HCl 5 mg 11/23/24 15:15 11/23/24 15:25 Oxycodone Hcl Immed Release 5 Mg Tablet PO 11/23/24 15:16 5 mg ONCE ONE Administration Medical Decision Making Medical Decision Making MDM Narrative: 74 yo female with history of dementia coming from locked dementia unit with left arm pain. there is a skin tear on the left elbow raising suspicion for trauma. XR elbow and humerus ordered along with CT head and cervical spine given age. XR humerus showing fracture. placed in sling. small skin tear repaired w/ steri strips. severe pain with minimal movement. concerned about her safety at assisted living without nursing care from 7p-7a. 16:32 CT scan of the cervical spine showing acute displaced fx C6 vertebral body. [facility] trauma paged. [place] collar ordered however we do not have any in stock. adjustable collar placed. accepted to [facility] Differential Diagnosis Differential Diagnoses: The differential diagnosis associated with the presentation includes elbow fracture, humerus fracture, ICH, concussion, skin tear, contusion Admission/Observation Consideration of admission/observation: Escalation of care including admission/observation considered Consult Healthcare Provider Management of the patient was discussed with: Microphone Boom Operator Independent Interpretation I performed an independent interpretation of an: Plain X-Ray Interpretation: xr humerus showing acute fracture CT head with ventriculomegaly, no acute bleed or edema appreciated Radiology Impression Discussion of test interpretation with radiology: I have reviewed the radiologist's reading. Radiologist Impression: C-SPINE CT Degenerative changes of the cervical spine with osteophyte formation and narrowing of the C5-C6 intervertebral disc space. There is a fracture fragment of the anterior inferior portion of the C6 vertebral body. Visualized intracranial contents are unremarkable. Soft tissues of the neck are normal. No consolidation or effusion at the lung apices. IMPRESSION: Displaced fracture of the anterior inferior portion of the C6 vertebral body, likely to be acute. Independent Historian Clinical information obtained from an independent historian. History obtained from or confirmed by: EMS External Record Review External record reviewed: Outpatient record and Prior outpatient labs Prescription Management I considered prescription management with: Pain Medication Chronic Conditions Patient?s care impacted by: Other (dementia) Procedures Laceration Laceration 1: Site: upper extremity Side (If applicable): left Size (cm): 2 Description: irregular Depth: simple, single layer Pre-repair: irrigated extensively Skin layer closed with: other (steri strips) Orthopedic Splinting/Casting Injury #1: Side: left Upper Extremity Injury Location: upper arm Upper Extremity Immobilizer: sling/shoulder immobilizer Critical Care Time Critical Care Time Critical Care Time: Yes Total Critical Care Time: 33 Attestation: I have personally provided critical care time exclusive of time spent on separately billable procedures. Time includes review of lab data, radiology results, discussion with consultants, and monitoring for potential decompensation. Intervention performed as documented. Discharge Plan Discharge Clinical Impression: Fracture, humerus Qualifiers: Encounter type: initial encounter Humerus Location: proximal Fracture type: closed Fracture alignment: displaced Laterality: left C6 cervical fracture Qualifiers: Encounter type: initial encounter Fracture type: closed Fracture morphology: unspecified fracture morphology Fracture alignment: displaced Qualified Code(s): S12.500A - Unspecified displaced fracture of sixth cervical vertebra, initial encounter for closed fracture Patient Disposition: [facility] Transfer Details: [facility] Prescriptions: No Action clonidine HCl 0.1 mg Tablet 0.1 mg PO TID PRN (Reason: HTN) 30 Days Qty: 60 0RF Protocol: Hold for SBP< HOLD for SBP < : 90 amlodipine 5 mg Tablet 5 mg PO DAILY 30 Days Qty: 30 0RF Protocol: Hold for SBP< HOLD for SBP < : 90 olanzapine 2.5 mg Tablet 2.5 mg PO DAILY PRN (Reason: agitation) 30 Days Qty: 30 0RF cefuroxime axetil 500 mg Tablet 500 mg PO BID 4 Days Qty: 8 0RF memantine 5 mg Tablet 5 mg PO DAILY 30 Days Qty: 30 0RF albuterol inhaler 2 puff PO QID PRN (Reason: Wheezing) 30 Days Qty: 1 0RF Rx Instructions: Albuterol sulphate HFA 108 AERS ibandronate 150 mg PO QMONTH 30 Days Qty: 1 0RF Print Language: Spanish
[2024-11-23] MEDS: Acetaminophen 325 MG TABLET 975 MG PO (15:24)
[2024-11-23 15:25] VITALS: BP 108/68; PULSE 88; O2SAT 97; BMI 22.3
[2024-11-23] MEDS: oxyCODONE HCl Immed Release 5 MG TABLET PO (15:25)
[2024-11-23 15:52] VITALS: BP 113/69; PULSE 75; RESP 20; TEMP 36.9; O2SAT 95
[2024-11-23 17:41] VITALS: BP 103/68; PULSE 78; RESP 14; TEMP 37; O2SAT 90
[2024-11-23 17:48] VITALS: BP 103/68; PULSE 78; RESP 16; TEMP 37; O2SAT 90
== END 2024-11-23 17:51 | disposition short-term general hospital (02) ==
PROVIDERS: Emergency Provider Emergency Medicine
DX: S42.202A Unspecified fracture of upper end of left humerus, initial encounter for closed fracture (principal); S12.500A Unspecified displaced fracture of sixth cervical vertebra, initial encounter for closed fracture; S51.012A Laceration without foreign body of left elbow, initial encounter; R51.9 Headache, unspecified; M25.512 Pain in left shoulder; M25.522 Pain in left elbow; M54.2 Cervicalgia; M79.602 Pain in left arm; F03.90 Unspecified dementia, unspecified severity, without behavioral disturbance, psychotic disturbance, mood disturbance, and anxiety; F17.210 Nicotine dependence, cigarettes, uncomplicated; W01.10XA Fall on same level from slipping, tripping and stumbling with subsequent striking against unspecified object, initial encounter; Y93.01 Activity, walking, marching and hiking; Y92.092 Bedroom in other non-institutional residence as the place of occurrence of the external cause; Z79.899 Other long term (current) drug therapy
CPT/HCPCS: 12031; 29105; 70450; 72125; 73030; 73080; 99285

== ENCOUNTER → 2024-11-23 14:41 | Outpatient (BNV) | payer MEDICARE, SELFPAY | PROVIDERS: Emergency Provider Emergency Medicine; Visit Provider Nuclear Medicine | DX: S12.500A Unspecified displaced fracture of sixth cervical vertebra, initial encounter for closed fracture (principal); H31.119 Age-related choroidal atrophy, unspecified eye; I67.89 Other cerebrovascular disease; S42.202A Unspecified fracture of upper end of left humerus, initial encounter for closed fracture; M25.522 Pain in left elbow | CPT/HCPCS: 70450; 72125; 73030; 73080 ==